=== PATIENT | male | born 1965 | race Hispanic/Latino ===

== ENCOUNTER 2019-05-04 21:06 | Emergency (ER) | payer MEDICARE ==
[2019-05-04 21:36] LABS: BASOPHILS % (AUTO) 0.4 % (0.0-5.0); EOSINOPHILS % (AUTO) 0.6 % (0.0-8.0); HEMATOCRIT 34.3 % (42-54); LYMPHOCYTES % (AUTO) 13.3 % (21.0-51.0); MEAN CORPUSCULAR HGB CONC 34.5 g/dL (32.0-36.0); MEAN CORPUSCULAR VOLUME 92.7 fL (79-99); MONOCYTES % (AUTO) 10.1 % (3.0-13.0); NEUTROPHILS % (AUTO) 75.6 % (40.0-77.0); PLATELET COUNT (AUTO) 426 K/uL (130-400); RED CELL DISTRIBUTION WIDTH 13.4 % (11.0-15.5); WHITE BLOOD COUNT (AUTO) 12.8 K/uL (4.8-10.8)
[2019-05-04] MEDS ORDERED: ONDANSETRON HCL 4 MG/2 ML VIAL ONE (21:49)
[2019-05-04] MEDS ORDERED: MORPHINE SULFATE 4 MG/1ML SYG ONE (21:49)
[2019-05-04] MEDS ORDERED: SODIUM CHLORIDE 0.9% 1000ML 1,000 ML IV ONE (21:50)
[2019-05-04 21:52] LABS: POTASSIUM 4.7 mmol/L (3.5-5.1)
[2019-05-04 21:56] LABS: ALBUMIN 3.6 g/dL (3.5-5.0); BILIRUBIN,TOTAL 0.2 mg/dL (0.2-1.0); TOTAL PROTEIN, SERUM 7.6 g/dL (6.0-8.3)
[2019-05-04 23:05] LABS: APPEARANCE,URINE Clear (CLEAR); BILIRUBIN,URINE Negative (NEGATIVE); COLOR,URINE Yellow (YELLOW); GLUCOSE, URINE (UA) Negative (NEGATIVE); KETONES,URINE Negative (NEGATIVE); LEUKOCYTE ESTERASE ,URINE Negative (NEGATIVE); NITRATE,URINE Negative (NEGATIVE); OCCULT BLOOD,URINE Negative (NEGATIVE); PH,URINE 6.5 (5.0-8.0); PROTEIN,URINE Negative (NEGATIVE); UROBILINOGEN,URINE 0.2 mg/dL (0.2-1.0)
[2019-05-04] MEDS ORDERED: LACTULOSE 20 GM/30 ML UDCUP ONE (23:48)
== END 2019-05-05 00:04 | disposition home or self-care (01) ==
LOC: EDH 21:06
DX: K59.00 Constipation, unspecified (principal); E87.1 Hypo-osmolality and hyponatremia; F32.9 Major depressive disorder, single episode, unspecified
CPT/HCPCS: 36415; 74176; 80053; 81003; 83690; 85025; 96374; 96375; 99285; J2270; J2405; J7030

== ENCOUNTER 2019-05-22 14:00 | Inpatient (IN) | payer MEDICARE ==
[~2019-05-22] VITALS: Ht 167.6 cm; Wt 60.1 kg
[2019-05-22] MEDS ORDERED: SODIUM CHLORIDE 0.9% 1000ML 1,000 ML IV ONE ×2 (14:15→22:14)
[2019-05-22] MEDS ORDERED: LORAZEPAM 2 MG/ML 1 ML VIAL ONE ×2 (14:34→20:45)
[2019-05-22 14:43] LABS: BASOPHILS % (AUTO) 0.7 % (0.0-5.0); EOSINOPHILS % (AUTO) 3.2 % (0.0-8.0); HEMATOCRIT 36.3 % (42-54); LYMPHOCYTES % (AUTO) 14.6 % (21.0-51.0); MEAN CORPUSCULAR HEMOGLOBIN 32.2 pg (27.0-33.0); MEAN CORPUSCULAR HGB CONC 34.4 g/dL (32.0-36.0); MEAN CORPUSCULAR VOLUME 93.6 fL (79-99); MONOCYTES % (AUTO) 14.2 % (3.0-13.0); NEUTROPHILS % (AUTO) 67.3 % (40.0-77.0); PLATELET COUNT (AUTO) 305 K/uL (130-400); RED BLOOD CELL COUNT(AUTO) 3.88 MIL/uL (4.50-6.20); RED CELL DISTRIBUTION WIDTH 13.5 % (11.0-15.5); WHITE BLOOD COUNT (AUTO) 7.9 K/uL (4.8-10.8)
[2019-05-22 14:45] LABS: APPEARANCE,URINE Clear (CLEAR); BILIRUBIN,URINE Negative (NEGATIVE); COLOR,URINE Yellow (YELLOW); GLUCOSE, URINE (UA) Negative (NEGATIVE); KETONES,URINE Negative (NEGATIVE); LEUKOCYTE ESTERASE ,URINE Negative (NEGATIVE); NITRATE,URINE Negative (NEGATIVE); OCCULT BLOOD,URINE Negative (NEGATIVE); PH,URINE 6.5 (5.0-8.0); PROTEIN,URINE Negative (NEGATIVE); UROBILINOGEN,URINE 0.2 mg/dL (0.2-1.0)
[2019-05-22 14:54] LABS: INR 0.95 (0.85-1.15); PARTIAL THROMBOPLASTIN TIME 27.2 SEC (26.3-35.5)
[2019-05-22 14:57] LABS: CREATININE 0.9 mg/dL (0.5-1.5); POTASSIUM 4.8 mmol/L (3.5-5.1)
[2019-05-22 15:02] LABS: ALBUMIN 3.6 g/dL (3.5-5.0); BILIRUBIN,TOTAL 0.3 mg/dL (0.2-1.0); TOTAL PROTEIN, SERUM 7.5 g/dL (6.0-8.3)
[2019-05-22] MEDS ORDERED: MORPHINE SULFATE 2 MG/ML 1ML SYG IVP ONE (17:45)
[2019-05-22] MEDS ORDERED: ONDANSETRON HCL 4 MG/2 ML VIAL IV PRN (18:00)
[2019-05-22] MEDS ORDERED: HYDRALAZINE HCL 20 MG/ML VIAL IV PRN (18:00)
[2019-05-22] MEDS ORDERED: LACTULOSE 20 GM/30 ML UDCUP PO PRN (18:00)
[2019-05-22] MEDS ORDERED: MORPHINE SULFATE 2 MG/ML 1ML SYG ONE (19:26)
[2019-05-22 22:30] VITALS: BP 134/86
--- NOTE | 2019-05-22 22:30 | NUR ---
ADMIT Admitted from ER,pt has [address] [facility].Pt has a ngt,abdomen firm,distended.Pt appears calm.Pt moved from 309 to 312 as per joss house keeper Colby Ramirez Rn.Pt has a bed alarm,yellow socks,side rails up x 2,call light in reach.
[2019-05-22] MEDS ORDERED: MAGNESIUM CITRATE 296 ML SOLUTION ONE (22:31)
[2019-05-22] MEDS ORDERED: LACTULOSE 20 GM/30 ML UDCUP PO ONE (22:45)
[2019-05-22] MEDS ORDERED: PEG 3350/NA SULF,BICARB,CL/KCL 4000 ML SOLN PO SCH (22:45)
[2019-05-22] MEDS: CEFTRIAXONE SODIUM 1 GM IV SCH (22:56)
[2019-05-22] MEDS: MAGNESIUM CITRATE 296 ML SOLUTION PO SCH (22:57)
[2019-05-22] MEDS: FAMOTIDINE/PF 20 MG/2 ML VIAL IV SCH (23:55)
[2019-05-22] MEDS: SODIUM CHLORIDE 0.9% 1000ML 1,000 ML IV SCH (23:56)
[2019-05-23] VITALS (13 sets, daily range): BP systolic 99–138; BP diastolic 73–82
--- NOTE | 2019-05-23 00:04 | NUR ---
BOWEL PREP Golytely being given via ngt,dian well.
[2019-05-23] MEDS: SODIUM CHLORIDE 0.9% 1000ML 1,000 ML IV SCH ×3 (01:46→20:01)
--- NOTE | 2019-05-23 03:44 | NUR ---
ABDOMEN Pts abdomen remains distended,hypoactive bowel sounds.No bm yet.
[2019-05-23 05:05] LABS: BASOPHILS % (AUTO) 0.9 % (0.0-5.0); EOSINOPHILS % (AUTO) 3.7 % (0.0-8.0); HEMATOCRIT 32.9 % (42-54); LYMPHOCYTES % (AUTO) 18.5 % (21.0-51.0); MEAN CORPUSCULAR HEMOGLOBIN 32.2 pg (27.0-33.0); MEAN CORPUSCULAR HGB CONC 34.7 g/dL (32.0-36.0); MEAN CORPUSCULAR VOLUME 92.9 fL (79-99); MONOCYTES % (AUTO) 12.9 % (3.0-13.0); PLATELET COUNT (AUTO) 267 K/uL (130-400); RED BLOOD CELL COUNT(AUTO) 3.55 MIL/uL (4.50-6.20); RED CELL DISTRIBUTION WIDTH 13.4 % (11.0-15.5); WHITE BLOOD COUNT (AUTO) 6.5 K/uL (4.8-10.8)
[2019-05-23 05:25] LABS: BILIRUBIN,TOTAL 0.3 mg/dL (0.2-1.0); CREATININE 0.6 mg/dL (0.5-1.5); POTASSIUM 4.3 mmol/L (3.5-5.1); TOTAL PROTEIN, SERUM 6.5 g/dL (6.0-8.3)
[2019-05-23] MEDS ORDERED: MAGN1TAB2 PO (05:44)
[2019-05-23] MEDS ORDERED: ACET325C6 PO (05:44)
[2019-05-23] MEDS ORDERED: MEGE40L PO (05:44)
[2019-05-23] MEDS ORDERED: AMIO100T4 PO (05:44)
[2019-05-23] MEDS ORDERED: ONDA4TAB4 PO (05:44)
[2019-05-23] MEDS ORDERED: DOCU100C33 PO (05:44)
[2019-05-23] MEDS ORDERED: AMLO5TAB9 PO (05:44)
[2019-05-23] MEDS ORDERED: POLY500P31 PO (05:44)
[2019-05-23] MEDS ORDERED: LORA2TAB80 PO (05:44)
[2019-05-23] MEDS ORDERED: FERS325 PO (05:44)
[2019-05-23] MEDS ORDERED: CHOL500062 PO (05:44)
[2019-05-23] MEDS ORDERED: FOLI1 PO (05:44)
[2019-05-23] MEDS ORDERED: CALC-125 PO (05:44)
[2019-05-23] MEDS ORDERED: LORA-192 PO (05:44)
[2019-05-23] MEDS ORDERED: CALC-1190 PO (05:44)
[2019-05-23] MEDS ORDERED: PROP20SO PO (05:44)
[2019-05-23] MEDS ORDERED: BISA10SU11 RC (05:44)
[2019-05-23] MEDS ORDERED: MELA10TA PO (05:44)
--- NOTE | 2019-05-23 06:56 | NUR ---
Paged Dr Leiva,pt has not had a bowel movement.
[2019-05-23] MEDS ORDERED: ERYTHROMYCIN LACTOBIONATE 250 MG in SODIUM CHLORIDE 0.9% 100 ML IV SCH (08:00)
[2019-05-23] MEDS ORDERED: ENOXAPARIN SODIUM 30 MG/0.3 ML SQ SCH (09:00)
--- NOTE | 2019-05-23 09:30 | NUR ---
INITIAL MUSTAPHA SHABAZZ CLINICAL LIASION FROM [facility] HERE. PT LIVES AT [facility] SINCE 05/2017. PT IS NON VERBAL BUT AMBULATORY AND REQUIRES SITTER. HAS TWO IN ROOM WITH HIM AT ALL TIMES, AND ALSO A BOOK RE HIS BEHAVIORS AND HANDLING SISTER IS ON FACE SHEET AND DOES NEED TO BE CONTACTED/ KEP UP TO DATE ON HIS STATUS. [facility] WILL PROVIDE TRANSPORT. CHART REVIEWED WITH MUSTAPHA- PT EXPECT TO HAVE A STAY OF +/- 3 DAYS. DCP IS BACK TO HIS [facility] . CM TO FOLLOW Addendum: 05/24/19 at 1915 by GELACIO KAMARA RN CM Amended: Links added.
[2019-05-23] MEDS: FAMOTIDINE/PF 20 MG/2 ML VIAL IV SCH ×2 (11:22→20:01)
--- NOTE | 2019-05-23 11:45 | NUR ---
Tap water enema per request of Dr. Leiva of 700 mL administered as abdomen extremely distended, tender hard to palpation. Patient to go to Endoscopy for colonoscopy and decompression with Dr. Leiva. Patient became restless post enema, attempting to stand and get out of bed. Two staff members from [facility], sister and [facility] student NIKO Quick present and assisting to stabilize patient in bed to prevent injury or fall. Called Dr. Harrison and received telephone order for ATivan 1 mg IVP once for anxiety. Called Endoscopy to notify of ATivan order to assist to transfer patient to Endoscopy. Per Anesthesiologist hold Ativan. During communication with Endoscopy, patient pulled IV out during movement, catheter intact and bleeding controlled. Consent for colonoscopy with decompression reviewed and signed by sister Kelin Castaneda, and patient escorted by hospital bed with 4 assistants.
[2019-05-23] MEDS ORDERED: MIDAZOLAM HCL 1 MG/ML 2ML VIAL ONE (12:20)
[2019-05-23] MEDS ORDERED: PROPOFOL 10 MG/ML 20ML VIAL IV ONE (12:20)
[2019-05-23] MEDS ORDERED: SUCCINYLCHOLINE 200MG/10ML SYR ONE (12:21)
[2019-05-23] MEDS ORDERED: FENTANYL CITRATE PF 50 MCG/1 ML 2ML VIAL ONE (12:22)
[2019-05-23] MEDS ORDERED: LORAZEPAM 2 MG/ML 1 ML VIAL IVP ONE (13:15)
--- NOTE | 2019-05-23 13:53 | NUR ---
RD NOTIFICATION DIET: NPO; PENDING PROCEDURE. PT WITH HX OF INTELLECTUAL DISABILITIES AND LIVES IN ASSISTED LIVING FACILITY. PT HAVING CONSTIPATION AT THIS TIME, ABDOMINAL PAIN, NAUSEA AND ABDOMINAL DISTENTION. PT STILL UNABLE TO PASS BM OF TODAY. S/P ENEMA TODAY. PENDING COLON. PROCEDURE. NO EDEMA, SKIN INTACT. BMI IS 15.8 CLASSIFIED SEVERE UNDERWEIGHT. PT WITH PHYSICAL EVIDENCE OF MUSCLE AND FAT LOSS RESULTING IN PROTEIN/ CALORIE MALNUTRITION. RECOMMENDATIONS/ INTERVENTIONS: ADVANCE DIET TOLERATED WHEN MEDICALLY FEASIBLE ASSISTED FEEDINGS WITH ALL MEALS- MONITOR PO INTAKE AND APPETITE DAILY MONITOR WEIGHT DAILY OFFER ORAL SUPPLEMENTATION WITH ALL MEALS CONSULT TELETYPE TELEGRAPHER FOR ANY SWALLOWING DIFFICULTIES RD WILL CONTINUE TO MONITOR AND FOLLOW UP NEEDED, THANK YOU Addendum: 05/23/19 at [address] Amended: Links added.
[2019-05-23] MEDS ORDERED: LORAZEPAM 2 MG/ML 1 ML VIAL ONE ×2 (15:42→23:58)
[2019-05-23] MEDS ORDERED: HALOPERIDOL DECANOATE 100 MG/ML ML IM PRN (17:00)
--- NOTE | 2019-05-23 17:00 | NUR ---
Per physician order, 4 oz. Golytely administered to rectal tube and will continue Q30 minutes until 1L complete. Patient lying in bed, making groaning noises and straining buttocks after adminstration. Pulled IV to LW out that was placed in Endoscopy. Bleeding controlled, site cleansed with alcohol. Received verbal order from Dr. Dez Harrison for Haldol 5 mg IM Q6h PRN for anxiety. Patient tolerated administration of Golytely rectally, [facility] staff x 2 at bedside. Rectal tube hanging above floor, draining dark greenish brown. Bed low, locked. Call cantor within reach.
[2019-05-23] MEDS ORDERED: LORAZEPAM 2 MG/ML 1 ML VIAL IM SCH (17:15)
[2019-05-23] MEDS ORDERED: LORAZEPAM 2 MG/ML 1 ML VIAL IM ONE (17:15)
[2019-05-23] MEDS ORDERED: PEG 3350/NA SULF,BICARB,CL/KCL 4000 ML SOLN PO ONE (17:15)
--- NOTE | 2019-05-23 17:21 | NUR ---
Patient's NG tube tape came loose. XR Abdomen taken, pending results. HOlding Miralax administration until results verify NG tube in place.
[2019-05-23] MEDS ORDERED: POTASSIUM CHLORIDE 10MEQ/100ML 100 ML IV PRN (19:00)
[2019-05-23] MEDS ORDERED: LIDOCAINE HCL-MPF 1% 2ML VIAL IV PRN (19:00)
[2019-05-23] MEDS: MORPHINE SULFATE 2 MG/ML 1ML SYG IVP PRN (20:02)
[2019-05-23] MEDS: POLYETHYLENE GLYCOL 3350 17 GM POWD.PACK PO SCH (20:16)
--- NOTE | 2019-05-23 20:37 | NUR ---
RESTLESS Pt became very restless and agitated,trying to get out of bed,2 staff from [facility] in the room.Abdomen softer,rectal tube patent,draining brown liquid stool.Pt was medicated with morphine and zofran earlier.Notified Yony alvarado cooler supervisor re pt.s status.
[2019-05-23] MEDS: MAGNESIUM CITRATE 296 ML SOLUTION PO SCH (22:45)
[2019-05-23] MEDS: HALOPERIDOL LACTATE 5 MG/ML VIAL IM PRN (23:12)
[2019-05-23] MEDS: CEFTRIAXONE SODIUM 1 GM IV SCH (23:12)
--- NOTE | 2019-05-23 23:21 | NUR ---
HALDOL Pt was soiled,became restless again when staff changed his bed.Haldol given.
[2019-05-24] VITALS: BP 134/84
[2019-05-24] MEDS ORDERED: LORAZEPAM 2 MG/ML 1 ML VIAL IVP ONE
--- NOTE | 2019-05-24 00:08 | NUR ---
ATIVAN Pt still restless and agitated,ativan given iv.
--- NOTE | 2019-05-24 00:19 | NUR ---
CALM Pt appears more calm,respirations even and unlabored.2 staff from [place] at bedside.
[2019-05-24] MEDS: SODIUM CHLORIDE 0.9% 1000ML 1,000 ML IV SCH ×3 (01:46→22:30)
[2019-05-24] MEDS: HALOPERIDOL LACTATE 5 MG/ML VIAL IM SCH ×2 (02:03→17:16)
--- NOTE | 2019-05-24 04:40 | NUR ---
ASLEEP Pt cont to sleep,respirations even and unlabored.Arousable.Rectal tube draining light brown liquid,cont to flush with 6 oz golytely q 30 min.
[2019-05-24 05:19] LABS: BASOPHILS % (AUTO) 0.6 % (0.0-5.0); EOSINOPHILS % (AUTO) 2.9 % (0.0-8.0); HEMATOCRIT 36.5 % (42-54); LYMPHOCYTES % (AUTO) 13.1 % (21.0-51.0); MEAN CORPUSCULAR HEMOGLOBIN 31.8 pg (27.0-33.0); MEAN CORPUSCULAR HGB CONC 33.8 g/dL (32.0-36.0); MEAN CORPUSCULAR VOLUME 93.9 fL (79-99); MONOCYTES % (AUTO) 10.2 % (3.0-13.0); NEUTROPHILS % (AUTO) 73.2 % (40.0-77.0); PLATELET COUNT (AUTO) 269 K/uL (130-400); RED BLOOD CELL COUNT(AUTO) 3.89 MIL/uL (4.50-6.20); RED CELL DISTRIBUTION WIDTH 13.5 % (11.0-15.5); WHITE BLOOD COUNT (AUTO) 7.4 K/uL (4.8-10.8)
[2019-05-24 05:34] LABS: ALBUMIN 3.2 g/dL (3.5-5.0); BILIRUBIN,TOTAL 0.4 mg/dL (0.2-1.0); CREATININE 0.6 mg/dL (0.5-1.5); POTASSIUM 4.6 mmol/L (3.5-5.1)
[2019-05-24 08:00] VITALS: BP 142/84
[2019-05-24] MEDS: POLYETHYLENE GLYCOL 3350 17 GM POWD.PACK PO SCH ×4 (09:43→20:35)
[2019-05-24] MEDS: FAMOTIDINE/PF 20 MG/2 ML VIAL IV SCH ×2 (09:43→20:35)
[2019-05-24] MEDS: HALOPERIDOL LACTATE 5 MG/ML VIAL IM PRN (11:27)
[2019-05-24 12:00] VITALS: BP 149/99
--- NOTE | 2019-05-24 13:38 | NUR ---
RD Follow up Diet: Clear liquids. PO intake 100% and has good appetite as per family. Pt is tolerating meals well. LBM: 05/23, noted. Recommendations/ Interventions: Continue current diet, advance diet as tolerated when medically feasible Offer salt packet with meals RD will continue to follow up Addendum: 05/24/19 at [address] Amended: Links added.
[2019-05-24 16:00] VITALS: BP 147/96
[2019-05-24 20:00] VITALS: BP 149/94
[2019-05-24] MEDS: MORPHINE SULFATE 2 MG/ML 1ML SYG IVP PRN (21:36)
[2019-05-24] MEDS: CEFTRIAXONE SODIUM 1 GM IV SCH (22:22)
[2019-05-24] MEDS ORDERED: LORAZEPAM 2 MG/ML 1 ML VIAL ONE (23:36)
[2019-05-25] VITALS: BP 132/85
[2019-05-25 04:00] VITALS: BP 118/74
[2019-05-25 05:55] LABS: BASOPHILS % (AUTO) 0.5 % (0.0-5.0); EOSINOPHILS % (AUTO) 5.2 % (0.0-8.0); HEMATOCRIT 33.8 % (42-54); LYMPHOCYTES % (AUTO) 14.7 % (21.0-51.0); MEAN CORPUSCULAR HEMOGLOBIN 31.7 pg (27.0-33.0); MEAN CORPUSCULAR VOLUME 93.2 fL (79-99); MONOCYTES % (AUTO) 12.2 % (3.0-13.0); NEUTROPHILS % (AUTO) 67.4 % (40.0-77.0); PLATELET COUNT (AUTO) 279 K/uL (130-400); RED BLOOD CELL COUNT(AUTO) 3.62 MIL/uL (4.50-6.20); RED CELL DISTRIBUTION WIDTH 13.5 % (11.0-15.5); WHITE BLOOD COUNT (AUTO) 5.5 K/uL (4.8-10.8)
[2019-05-25 06:02] LABS: CREATININE 0.5 mg/dL (0.5-1.5); POTASSIUM 4.3 mmol/L (3.5-5.1)
[2019-05-25 06:07] LABS: ALBUMIN 3.1 g/dL (3.5-5.0); BILIRUBIN,TOTAL 0.4 mg/dL (0.2-1.0); MAGNESIUM 2.6 mg/dL (1.80-2.40); TOTAL PROTEIN, SERUM 6.9 g/dL (6.0-8.3)
[2019-05-25] MEDS: SODIUM CHLORIDE 0.9% 1000ML 1,000 ML IV SCH ×2 (06:46→23:42)
[2019-05-25 08:00] VITALS: BP 115/71
[2019-05-25] MEDS: FAMOTIDINE/PF 20 MG/2 ML VIAL IV SCH ×2 (09:28→21:31)
[2019-05-25] MEDS: POLYETHYLENE GLYCOL 3350 17 GM POWD.PACK PO SCH ×4 (09:28→21:30)
[2019-05-25 12:00] VITALS: BP 106/75
[2019-05-25] MEDS ORDERED: SODIUM CHLORIDE 45 ML SPRY NS PRN (15:30)
[2019-05-25 16:00] VITALS: BP 135/70
[2019-05-25 20:00] VITALS: BP 136/84
[2019-05-25] MEDS: ***HM*** (Melatonin 10 MG) PO SCH (21:00)
[2019-05-25] MEDS: DOCUSATE SODIUM 100 MG CAP PO SCH (21:31)
[2019-05-25] MEDS: CEFTRIAXONE SODIUM 1 GM IV SCH (23:35)
[2019-05-26] VITALS: BP 138/85
[2019-05-26 04:00] VITALS: BP 139/85
[2019-05-26] MEDS ORDERED: ACETAMINOPHEN 325 MG TAB ONE (04:28)
[2019-05-26] MEDS ORDERED: ACETAMINOPHEN 325 MG TAB PO PRN (04:30)
[2019-05-26] MEDS: SODIUM CHLORIDE 0.9% 1000ML 1,000 ML IV SCH ×2 (04:56→14:56)
[2019-05-26] MEDS: LORAZEPAM 2 MG/ML 1 ML VIAL IVP PRN (06:55)
[2019-05-26 08:00] VITALS: BP 128/84
[2019-05-26] MEDS ORDERED: PROPRANOLOL HCL 20 MG/5 ML PO SCH (09:00)
[2019-05-26] MEDS: DOCUSATE SODIUM 100 MG CAP PO SCH ×2 (09:02→21:38)
[2019-05-26] MEDS: FERROUS SULFATE 325 MG TABLET.DR PO SCH (09:02)
[2019-05-26] MEDS: AMLODIPINE BESYLATE 5 MG TAB PO SCH (09:02)
[2019-05-26] MEDS: PROPRANOLOL HCL 20 MG TAB PO SCH (09:02)
[2019-05-26] MEDS: FAMOTIDINE/PF 20 MG/2 ML VIAL IV SCH ×2 (09:03→21:38)
[2019-05-26] MEDS: POLYETHYLENE GLYCOL 3350 17 GM POWD.PACK PO SCH ×4 (09:03→21:37)
[2019-05-26] MEDS: MEGESTROL 400 MG/10 ML UDCUP PO SCH (09:03)
[2019-05-26] MEDS: FOLIC ACID 1 MG TABLET PO SCH (09:03)
[2019-05-26 12:00] VITALS: BP 120/80
--- NOTE | 2019-05-26 12:10 | NUR ---
QUE PURVIS ,DR JOSE HERNANDEZ LAP RUNNER TODAY FOR CLEARANCE FOR DC AND DIET ADVANCEMENT . PENDING CALL BACK
[2019-05-26 16:00] VITALS: BP 132/82
[2019-05-26 19:10] VITALS: BP 127/92
[2019-05-26] MEDS: ***HM*** (Melatonin 10 MG) PO SCH (20:12)
[2019-05-26] MEDS: MUPIROCIN OINTMENT 22 GM TUBE TP SCH (21:00)
[2019-05-26] MEDS: CEFTRIAXONE SODIUM 1 GM IV SCH (22:58)
[2019-05-27] VITALS (7 sets, daily range): BP systolic 112–144; BP diastolic 69–96
[2019-05-27] MEDS: MUPIROCIN OINTMENT 22 GM TUBE TP SCH (09:00)
[2019-05-27] MEDS ORDERED: AMIODARONE HCL 200 MG TABLET PO SCH (09:00)
[2019-05-27] MEDS: FAMOTIDINE/PF 20 MG/2 ML VIAL IV SCH ×2 (10:28→20:54)
[2019-05-27] MEDS: DOCUSATE SODIUM 100 MG CAP PO SCH ×2 (10:28→20:54)
[2019-05-27] MEDS: FOLIC ACID 1 MG TABLET PO SCH (10:28)
[2019-05-27] MEDS: MEGESTROL 400 MG/10 ML UDCUP PO SCH (10:28)
[2019-05-27] MEDS: FERROUS SULFATE 325 MG TABLET.DR PO SCH (10:28)
[2019-05-27] MEDS: AMLODIPINE BESYLATE 5 MG TAB PO SCH (10:28)
[2019-05-27] MEDS: LORAZEPAM 2 MG/ML 1 ML VIAL IVP PRN (10:32)
[2019-05-27] MEDS: PROPRANOLOL HCL 20 MG TAB PO SCH (11:13)
[2019-05-27] MEDS: POLYETHYLENE GLYCOL 3350 17 GM POWD.PACK PO SCH ×4 (11:15→20:54)
[2019-05-27] MEDS ORDERED: HONEY 1 APPL/ML TUBE TP SCH (19:30)
[2019-05-27] MEDS ORDERED: PEG 3350/NA SULF,BICARB,CL/KCL 4000 ML SOLN PO ONE (20:15)
[2019-05-27] MEDS: ***HM*** (Melatonin 10 MG) PO SCH (20:58)
[2019-05-27] MEDS: CEFTRIAXONE SODIUM 1 GM IV SCH (22:55)
[2019-05-28] MEDS: HALOPERIDOL LACTATE 5 MG/ML VIAL IM PRN (01:01)
[2019-05-28] MEDS: LORAZEPAM 2 MG/ML 1 ML VIAL IVP PRN (01:56)
--- NOTE | 2019-05-28 02:46 | NUR ---
golytely encourage patient to drink golytely every 2 hours and patient refuses. will continue to encourage.
[2019-05-28 03:19] VITALS: BP 124/72
[2019-05-28 07:30] VITALS: BP 118/76
[2019-05-28] MEDS: MUPIROCIN OINTMENT 22 GM TUBE TP SCH (09:00)
[2019-05-28] MEDS: MEGESTROL 400 MG/10 ML UDCUP PO SCH (10:27)
[2019-05-28] MEDS: DOCUSATE SODIUM 100 MG CAP PO SCH (10:27)
[2019-05-28] MEDS: PROPRANOLOL HCL 20 MG TAB PO SCH (10:27)
[2019-05-28] MEDS: FOLIC ACID 1 MG TABLET PO SCH (10:27)
[2019-05-28] MEDS: POLYETHYLENE GLYCOL 3350 17 GM POWD.PACK PO SCH ×2 (10:28→13:16)
[2019-05-28] MEDS: FERROUS SULFATE 325 MG TABLET.DR PO SCH (10:28)
[2019-05-28] MEDS: FAMOTIDINE/PF 20 MG/2 ML VIAL IV SCH (10:28)
[2019-05-28] MEDS: AMLODIPINE BESYLATE 5 MG TAB PO SCH (10:28)
[2019-05-28] MEDS ORDERED: POLY17PO4 PO (11:35)
--- NOTE | 2019-05-28 15:56 | NUR ---
Pt d/c update Pt d/c safely accompanied with 2 staff members from [facility], d/c instructions given to staff members, staff members verbalized understanding of d/c instruction with primary nurse, pt to follow up with primary care provider and as well as GI, appointment made for pt, report given to Reta Winston NP, Pt prescription meds sent electronically to pharmacy on file, all questions and concerns addressed.
== END 2019-05-28 14:40 | disposition home or self-care (01) | DRG 389 ==
LOC: EDH 14:00 → EDHIP 17:46 → 3BH 22:20
PROVIDERS: ADMIT Internal Medicine; ATTEND Internal Medicine
PROC: 0D9E80Z Drainage of Large Intestine with Drainage Device, Via Natural or Artificial Opening Endoscopic (ICD-10-PCS; principal; 2019-05-23)
DX: K56.7 Ileus, unspecified (principal); J98.11 Atelectasis; K59.39 Other megacolon; K29.80 Duodenitis without bleeding; K29.70 Gastritis, unspecified, without bleeding; K27.9 Peptic ulcer, site unspecified, unspecified as acute or chronic, without hemorrhage or perforation; D64.9 Anemia, unspecified; F41.9 Anxiety disorder, unspecified; F63.81 Intermittent explosive disorder; K21.9 Gastro-esophageal reflux disease without esophagitis; F71 Moderate intellectual disabilities; I10 Essential (primary) hypertension; K64.1 Second degree hemorrhoids; D50.9 Iron deficiency anemia, unspecified; K59.00 Constipation, unspecified
CPT/HCPCS: 36415; 71045; 74018; 74176; 76872; 80053; 81003; 83690; 83735; 84132; 85025; 85610; 85730; A4606; G0378; J0330; J0696; J1364; J1630; J2060; J2250; J2405; J2704; J3010; J3490; J7030

== ENCOUNTER 2020-05-10 05:14 | Inpatient (IN) | payer MEDICARE ==
[~2020-05-10] VITALS: Ht 165.1 cm; Wt 56.7 kg
[~2020-05-10 05:14] MED LIST: ACET325C6 PO; AMIO100T4 PO; AMLO-257 PO; BISA10SU11 RC; CALC-1190 PO; CALC-125 PO; CHOL500062 PO; DOCU100C33 PO; FERS325 PO; FOLI1 PO; LORA-192 PO; LORA2TAB80 PO; MAGN1TAB2 PO; MEGE40L PO; MELA10TA PO; ONDA4TAB4 PO; POLY17PO4 PO; POLY500P31 PO; PROP20SO PO
[2020-05-10] MEDS ORDERED: LORAZEPAM 2 MG/ML 1 ML VIAL ONE (05:20)
[2020-05-10] MEDS ORDERED: PROPOFOL 1000 MG/100 ML 100 ML IV ONE ×4 (05:35→21:27)
[2020-05-10] MEDS ORDERED: SODIUM CHLORIDE 0.9% 100 ML IV ONE (05:38)
[2020-05-10] MEDS ORDERED: PANTOPRAZOLE 40 MG/VIAL ONE ×2 (05:38→14:45)
[2020-05-10] MEDS ORDERED: MIDAZOLAM HCL 5 MG/ML 2ML VIAL IV ONE (05:43)
[2020-05-10 05:47] LABS: BASOPHILS % (AUTO) 0.4 % (0.0-5.0); HEMATOCRIT 41.2 % (42-54); LYMPHOCYTES % (AUTO) 22.9 % (21.0-51.0); MEAN CORPUSCULAR HEMOGLOBIN 30.9 pg (27.0-33.0); MEAN CORPUSCULAR HGB CONC 34.2 g/dL (32.0-36.0); MEAN CORPUSCULAR VOLUME 90.2 fL (79-99); MONOCYTES % (AUTO) 9.7 % (3.0-13.0); NEUTROPHILS % (AUTO) 65.7 % (40.0-77.0); PLATELET COUNT (AUTO) 313 K/uL (130-400); RED BLOOD CELL COUNT(AUTO) 4.57 MIL/uL (4.50-6.20); RED CELL DISTRIBUTION WIDTH 12.3 % (11.0-15.5)
[2020-05-10 05:55] LABS: CREATININE 1.1 mg/dL (0.5-1.5); POTASSIUM 3.9 mmol/L (3.5-5.1)
[2020-05-10 05:55] LABS: APPEARANCE,URINE Cloudy (CLEAR); BILIRUBIN,URINE Negative (NEGATIVE); COLOR,URINE Yellow (YELLOW); GLUCOSE, URINE (UA) Negative (NEGATIVE); KETONES,URINE Negative (NEGATIVE); LEUKOCYTE ESTERASE ,URINE Negative (NEGATIVE); NITRATE,URINE Negative (NEGATIVE); OCCULT BLOOD,URINE Negative (NEGATIVE); PH,URINE 7.5 (5.0-8.0); PROTEIN,URINE Negative (NEGATIVE); UROBILINOGEN,URINE 0.2 mg/dL (0.2-1.0)
[2020-05-10 05:59] LABS: ALBUMIN 4.1 g/dL (3.5-5.0); BILIRUBIN,TOTAL 0.4 mg/dL (0.2-1.0); TOTAL PROTEIN, SERUM 8.7 g/dL (6.0-8.3)
[2020-05-10 06:15] LABS: INR 0.93 (0.85-1.15); PARTIAL THROMBOPLASTIN TIME 23.9 SEC (26.3-35.5); PROTHROMBIN TIME 10.1 SEC (9.6-11.6)
[2020-05-10 06:26] LABS: AMORPHOUS SEDIMENT,UR Moderate /LPF (None Seen); BACTERIA,URINE Few /HPF (None Seen); RBC,URINE 0-1 /HPF (0-1); WBC,URINE 0-1 /HPF (0-1)
[2020-05-10] MEDS ORDERED: IOHEXOL 350 MG/ML 100ML INFUS..BTL IV ONE (06:48)
[2020-05-10] MEDS ORDERED: SODIUM CHLORIDE 0.9% 1000ML 1,000 ML IV SCH (07:15)
[2020-05-10] MEDS ORDERED: PANTOPRAZOLE SODIUM 80 MG in SODIUM CHLORIDE 0.9% 100 ML IVP SCH (07:15)
[2020-05-10] MEDS ORDERED: ONDANSETRON HCL 4 MG/2 ML VIAL IVP PRN ×2 (07:15)
[2020-05-10 09:04] LABS: OCCULT BLOOD,GASTRIC FLUID POSITIVE (NEGATIVE)
[2020-05-10 12:34] LABS: HEMATOCRIT 35.9 % (42-54)
[2020-05-10 14:42] LABS: ABG BASE EXCESS 0.8 mmol/L (-2.0-3.0); ABG HCO3 23.5 mmol/L (21.0-28.0); ABG OXYGEN SATURATION 99.5 % (95.0-99.0); ABG PCO2 32 mmHg (35-48)
--- NOTE | 2020-05-10 14:48 | NUR ---
INITIAL SW spoke to nurse, Raj Paniagua at [facility]. Patient is a resident at [facility]. He has diagnosis of Intellectual Developmental Disability (IDD). Patient's sister, Danni Sims, , is legal guardian and makes all decisions for patient. Patient requires assistance with ADL's and is assisted daily by staff at [facility]. He is able to ambulate with assistance from staff with a gait belt. As per sister, patient will return to [facility] upon discharge. Staff at [facility] will be available to pear picker patient once he is discharged as per nurses at facility. Addendum: 05/10/20 at 1452 by KITA AVALOS SS Amended: Links added.
[2020-05-10] MEDS ORDERED: FENTANYL 2500MCG+NS 250ML 250 ML IV SCH (15:45)
[2020-05-10] MEDS ORDERED: FENTANYL 2500MCG+NS 250ML 250 ML IV ONE (18:35)
[2020-05-10 18:38] LABS: HEMATOCRIT 38.3 % (42-54)
[2020-05-11] MEDS ORDERED: PROPOFOL 1000 MG/100 ML 100 ML IV ONE ×3 (04:13→18:34)
[2020-05-11 06:51] LABS: HEMATOCRIT 36.3 % (42-54)
[2020-05-11 09:04] LABS: CREATININE 0.9 mg/dL (0.5-1.5); POTASSIUM 3.7 mmol/L (3.5-5.1)
[2020-05-11] MEDS ORDERED: OMEP-420 PO (09:15)
[2020-05-11] MEDS ORDERED: METO5TAB2 PO (09:36)
[2020-05-11] MEDS ORDERED: DENO60DI SQ (09:36)
[2020-05-11] MEDS ORDERED: METO50TA18 PO (09:36)
[2020-05-11] MEDS ORDERED: QUET100T33 PO (09:36)
[2020-05-11] MEDS ORDERED: GUAN1TAB22 PO (09:36)
--- NOTE | 2020-05-11 10:36 | NUR ---
RECD CALL FROM FAMILY Brother, alina, called this Cm on the phone and wanted to talk about patient. States his brother is dying, bleeding to , and 'no one doing anything for him, and we want him moved." CM reviewing chart at time of call, Ash Sims, identified at sister and POA also on the call States she wants her brother moved to another hospital. Reviewed item in the chart with the family - hgb 12, not needing blood at this time, on protonix drip. Family states an ER nurse told them they 'we are not doing anything for him and because he is not dying, we will get to him when we get to him' Family very upset, no treatment for his gi bleeding has been done, states intubation was a result of medication given to hiim, not a planned therapy. Advised i would call the md looking after the patient and call the boiler house supervisor- that i do not handle transfers. call to dr. stubbs and to the boiler house supervisor Dr Stubbs states would go look at patient called back, given ash number [phone] states he will call family call to bahman LAGUNAS to advised of family wishes
--- NOTE | 2020-05-11 10:37 | NUR ---
Brother, unidentified, called this Cm on the phone and wanted to talk about patient. States his brother is dying, bleeding to , and 'no one doing anything for him, and we want him moved." CM reviewing chart at time of call. Danni Sims, identified at [facility] and POA, was also on phone call States she wants her brother moved to another hospital. Reviewed items/info in the chart with the family - hgb 12, not needing blood at this time, on protonix drip.Family states an ER nurse told them 'we are not doing anything for him, and because he is not dying, we will get to him when we get to him' Family very upset: states no treatment for his gi bleeding has been done, states intubation was a result of medication given to patient, states not a planned therapy. Advised family that this CM would call the MD looking after the patient and call the warehouse stocker- that I do not handle transfers. Made call to Dr. Stubbs and to the warehouse stocker Dr Stubbs states would go look at patient called back, was given Danni number [phone] and states he will call family after seeing patient call to Terrie LAGUNAS to advised of family wishes.
[2020-05-11 12:21] LABS: HEMATOCRIT 38.3 % (42-54)
--- NOTE | 2020-05-11 12:41 | NUR ---
Patient's family requesting to transfer patient to [facility] for personal reasons. Patient is currently in ER holding and intubated. Patient has an admitting physician and specialist on the case here at [facility]. Contacted Meño from transfer center and states [facility] is at capacity and will have to decline patient's lateral transfer. ER director to notify family.
--- NOTE | 2020-05-11 13:15 | NUR ---
TRANSFER RECEIVED A CALL FROM PATIENT'S SISTER MICHAEL REQUESTING TRANSFER TO [facility], FAMILY UPSET THAT PT IS NOT GETTING GOOD CARE HERE. PLACED A CALL TO [facility] TRANSFER [facility]ENTER SPOKE WITH CLARY, GAVE PERTINENT INFO, FAXED INFO REQUESTED. AWAITING CALL BACK.
--- NOTE | 2020-05-11 15:45 | NUR ---
FAMILY UPDATE SPOKE WITH PATIENT'S SISTER, MICHAEL. MADE AWARE OF PENDING BED PLACEMENT WITH DHR. SISTER SIGNED RELEASE OF MEDICAL RECORDS AND CONSENT FOR TRANSFER. WILL FOLLOW UP WITH UPDATE ONCE DHR CALLS BACK WITH BED STATUS.
--- NOTE | 2020-05-11 16:18 | NUR ---
FOLLOW UP FOR TRANSFER RECEIVED CALL FROM [facility]. STATES CURRENTLY NO ICU BEDS AVAILABLE. WILL NOTIFY PATIENT'S SISTER, MICHAEL. PATIENT CURRENTLY INTUBATED. DR. DEWAYNE KELLER.
--- NOTE | 2020-05-11 16:49 | NUR ---
FAMILY UPDATE DHR TRANFER COORDINATOR, CLARY, RETURNED CALL. NO ICU BEDS AVAILABLE. SPOKE WITH PATIENT'S SISTER, MICHAEL, AND LET HER KNOW THAT THERE ARE NO AVAILABLE ICU BEDS FOR PATIENT AT THIS TIME. INFORMED THAT IT IS DR BUCHANAN'S PLAN TO EXTUBATE PATIENT TOMORROW DUE TO PATIENT'S CONDITION IMPROVING AND STABLE VITALS. MICHAEL AGREED TO LET PATIENT STAY AT [facility] AND CONTINUE CURRENT TREATMENT.
[2020-05-11] MEDS: DEXTROSE 5 %-0.45 % NACL 1,000 ML IV SCH (17:15)
[2020-05-11] MEDS ORDERED: DEXTROSE 5 %-0.45 % NACL 1,000 ML IV ONE (17:25)
[2020-05-11 18:50] LABS: HEMATOCRIT 49.9 % (42-54)
--- NOTE | 2020-05-11 19:24 | NUR ---
TRANSFER RECEIVED A CALL FROM PRECISION ASSEMBLER CLARY FROM [facility], PT HAS BEEN ACCEPTED BUT WAITING FOR A BED FOR TONIGHT. MICHAEL THE SISTER INFORMED AND HS GIVEN REPORT.
[2020-05-11] MEDS ORDERED: ACETAMINOPHEN 650 MG SUPPOSITORY RC ONE (21:16)
[2020-05-11] MEDS ORDERED: MEROPENEM 1 GM VIAL ONE (22:17)
[2020-05-12] VITALS (10 sets, daily range): BP systolic 136–167; BP diastolic 91–110
[2020-05-12 00:44] LABS: HEMATOCRIT 35.6 % (42-54)
[2020-05-12] MEDS ORDERED: PROPOFOL 1000 MG/100 ML 100 ML IV ONE (02:26)
[2020-05-12] MEDS ORDERED: MIDAZOLAM 100MG-0.9% NS 100ML 100 ML IV ONE (02:29)
[2020-05-12] MEDS ORDERED: MEROPENEM 1 GM VIAL ONE (05:50)
[2020-05-12 06:08] LABS: BASOPHILS % (AUTO) 0.4 % (0.0-5.0); EOSINOPHILS % (AUTO) 3.7 % (0.0-8.0); HEMATOCRIT 32.6 % (42-54); LYMPHOCYTES % (AUTO) 15.4 % (21.0-51.0); MEAN CORPUSCULAR HEMOGLOBIN 31.9 pg (27.0-33.0); MEAN CORPUSCULAR HGB CONC 34.4 g/dL (32.0-36.0); MEAN CORPUSCULAR VOLUME 92.9 fL (79-99); NEUTROPHILS % (AUTO) 67.9 % (40.0-77.0); PLATELET COUNT (AUTO) 241 K/uL (130-400); RED BLOOD CELL COUNT(AUTO) 3.51 MIL/uL (4.50-6.20); RED CELL DISTRIBUTION WIDTH 12.6 % (11.0-15.5); WHITE BLOOD COUNT (AUTO) 8.4 K/uL (4.8-10.8)
[2020-05-12 06:24] LABS: CREATININE 0.7 mg/dL (0.5-1.5); POTASSIUM 4.2 mmol/L (3.5-5.1)
--- NOTE | 2020-05-12 07:16 | NUR ---
TRANSFER CONTACTED [facility] WHO STATES THAT THERE ARE NO ICU BEDS AVAILABLE. THIS INFORMATION HAS BEEN SHARED WITH THE SISTER WHO INSISTS THAT SHE WAS TOLD HE WOULD BE TRANSFERRED LAST NIGHT. REITERATED THAT NO ONE TOLD HER HE WOULD BE TRANSFERRED LAST NIGHT--THERE WERE NO ICU BEDS AVAILABLE.
--- NOTE | 2020-05-12 09:16 | NUR ---
CALL RECEIVED FROM BRIGETTE PAGE NURSE MEDICAL VAN DRIVER AT [facility] INQUIRING RE STATUS, DISCUSSED TRANSFER, STATED SHE HAD SPOKEN TO FAMILY JENNA RAMIREZ RE: THE TRANSFER AND STATUS HGB AND VS DISCUSSED, ADVISED MS. PAGE THAT PATIENT WAS DEEMED STABLE FOR TRANSFER BY THE PMD, AND THAT THEY WERE PENIDNG A BED AT [facility]. REVIEWED TRANSFER DOCUMENTATION IN THE CHART. MS. KAYLEE LIN PATIENT HAS BEEN A RESIDENT FOR >2 YEARS, AND PRIOR TO THAT WAS CARED FOR BY THE FAMILY WHO ARE STRONG ADVOCATES MS PAGE STATES PATIENT HAS AEROPHAGIA WHICH CONTRIBUTES TO HIS GI PROBLEMS CM TO FOLLOW NEEDED/REQUESTED. HS TO HANDLE TRANSFER AND EMS TRANSPORT. Addendum: 05/12/20 at 0920 by GELACIO KAMARA RN Amended: Links added.
[2020-05-12] MEDS: DEXTROSE 5 %-0.45 % NACL 1,000 ML IV SCH (13:15)
[2020-05-12] MEDS ORDERED: ACETAMINOPHEN 650 MG SUPPOSITORY RC ONE (13:22)
--- NOTE | 2020-05-12 14:20 | NUR ---
CALL [facility] NURSE BODY ROLLING MACHINE TENDER ASKING FOR VERIFICATION THAT PATIENT TESTED POSITIVE FOR COVID. PATIENTS RESULT SENT TO [phone] Addendum: 05/12/20 at 1423 by GELACIO KAMARA RN CM Amended: Links added.
[2020-05-12] MEDS: CEFTRIAXONE SODIUM 1 GM IVP SCH (14:45)
[2020-05-12] MEDS ORDERED: CEFTRIAXONE SODIUM 1 GM ONE (14:47)
[2020-05-12] MEDS ORDERED: ONDANSETRON HCL 4 MG/2 ML VIAL ONE (15:40)
[2020-05-12] MEDS ORDERED: OLANZAPINE 10MG/ML 1ML VIAL IM SCH (17:45)
--- NOTE | 2020-05-12 19:00 | NUR ---
ADMIT PT ADMIT RM 206 ARRIVED FROM ED AT THIS TIME PT CONNECTED TO BEDSIDE MONITOR. PT ARRIVED AGITATED FUSSY AND AGGRESSIVE ATTEMPTING TO GET OUT OF BED, SITTER DENZEL AT BEDSIDE. REPORT RECEIVED FROM ELOISA Caldwell RN PT UNABLE TO COMMUNICATE D/T DEVELOPMENT DELAY. PT ABLE TO COMMUNICATE BY HEAD NODDING AND HEAD SHAKING. DAVID Post NOTIFIED AND MADE AWARE PT IN UNIT AND UPDATED ON PT CONDITION. NEW ORDERS RECEIVED AND IMPLEMENTED. DISCOVERED PT IS HUNGRY WHEN STATED NPO PT BECAME MORE FUSSY AND AGGRESSIVE. AT THIS TIME SIBLING MICHAEL NOTIFIED TO FIND OUT PT BASELINE BEHAVIOR SHE STATES PT WILL MISBEHAVE AND FIGHT. AT THIS TIME UPDATED FAMILY ON PT CONDITION & ALLOWED FOR FAMILY TO ASK QUESTION AND CONCERNS. PT WILL CONTINUE TO BE MONITORED.
[2020-05-12] MEDS: PANTOPRAZOLE 40 MG/VIAL IVP SCH (20:36)
[2020-05-12] MEDS ORDERED: LORAZEPAM 2 MG/ML 1 ML VIAL IVP ONE (21:15)
[2020-05-12] MEDS: HALOPERIDOL LACTATE 5 MG/ML VIAL IM PRN (21:56)
[2020-05-13] VITALS (24 sets, daily range): BP systolic 88–173; BP diastolic 34–112
[2020-05-13] MEDS: DEXTROSE 5 %-0.45 % NACL 1,000 ML IV SCH (00:58)
[2020-05-13] MEDS: CEFTRIAXONE SODIUM 1 GM IVP SCH ×2 (03:25→17:25)
[2020-05-13] MEDS ORDERED: DiphenhydrAMINE HCL 50 MG/ML VIAL ONE (03:47)
[2020-05-13] MEDS: DiphenhydrAMINE HCL 50 MG/ML VIAL IV SCH ×2 (03:54→11:28)
[2020-05-13 04:30] LABS: BASOPHILS % (AUTO) 0.3 % (0.0-5.0); HEMATOCRIT 35.8 % (42-54); MEAN CORPUSCULAR HEMOGLOBIN 30.6 pg (27.0-33.0); MEAN CORPUSCULAR HGB CONC 33.8 g/dL (32.0-36.0); MEAN CORPUSCULAR VOLUME 90.6 fL (79-99); NEUTROPHILS % (AUTO) 79.4 % (40.0-77.0); PLATELET COUNT (AUTO) 270 K/uL (130-400); RED BLOOD CELL COUNT(AUTO) 3.95 MIL/uL (4.50-6.20); WHITE BLOOD COUNT (AUTO) 11.5 K/uL (4.8-10.8)
[2020-05-13 04:51] LABS: ALANINE AMINOTRANSFERASE 27 U/L (12-78); ALBUMIN 3.3 g/dL (3.5-5.0); ASPARTATE AMINOTRANSFERASE 68 U/L (10-37); BILIRUBIN,TOTAL 0.4 mg/dL (0.2-1.0); CARBON DIOXIDE 26 mmol/L (21-32); CHLORIDE 102 mmol/L (101-111); CREATININE 0.9 mg/dL (0.5-1.5); GLOMERULAR FILTR. RATE CALC 93 mL/min (>60); GLUCOSE,RANDOM 118 mg/dL (70-105); LACTATE DEHYDROGENASE 217 U/L (81-234); POTASSIUM 3.8 mmol/L (3.5-5.1); SODIUM SERUM 139 mmol/L (136-145); TOTAL PROTEIN, SERUM 7.8 g/dL (6.0-8.3); UREA NITROGEN, BLOOD 6 mg/dL (7-18)
[2020-05-13] MEDS: DEXTROSE 5 % AND 0.9 % NACL 1,000 ML IV SCH ×2 (06:14→18:39)
[2020-05-13] MEDS ORDERED: DOXYCYCLINE 100MG+NS 250ML 250 ML IV SCH (08:00)
[2020-05-13] MEDS: HALOPERIDOL LACTATE 5 MG/ML VIAL IM PRN (09:03)
[2020-05-13] MEDS: PANTOPRAZOLE 40 MG/VIAL IVP SCH (09:03)
[2020-05-13] MEDS ORDERED: BUSPIRONE HCL 5 MG TABLET PO SCH ×2 (11:15→21:00)
[2020-05-13] MEDS: METOCLOPRAMIDE 5 MG TABLET PO SCH ×2 (11:29→17:26)
--- NOTE | 2020-05-13 11:30 | NUR ---
DYSPHAGIA EVAL COMPLETED. -S/S OF ASPIRATION. RECOMMEND MECHANICAL SOFT/GROUND, THIN LIQUIDS; PILLS WHOLE WITH LIQUIDS WHEN OK WITH MD TO ADVANCE DIET FROM CLEAR LIQUIDS. RECOMMENDATIONS: 1. CONTINUE CLEAR LIQUIDS UNTIL Pt TOLERATES DIET, THEN OK TO UPGRADE TO MECHANICAL SOFT/GROUND. INFECTION CONTROL MANAGER COORDINATED WITH NURSE AMIN AT THIS TIME. Addendum: 05/13/20 at 1616 by MELVIN ALAS [facility] Amended: Links added.
[2020-05-13] MEDS ORDERED: LORAZEPAM 1 MG TABLET PO SCH (12:00)
--- NOTE | 2020-05-13 12:21 | NUR ---
DC PLAN SPOKE TO BONIFACIO OCHOA [facility] AT [facility] NURSE [phone]. SAID PATIENT OKAY TO RETURN TO [facility]. THEY WOULD JUST PLACE HIM IN THE ISOLATION SECTION. AFTER DISCUSSING WITH NURSE AT FACILITY. SAID THEY ARE CONSTANTLY TRYING TO WORK ON PATIENT HR. IN THE 130'S IS NORMAL. NOT SUPRISED PATIENT IS AGITATED DOES NOT DO WELL WITH CHANGE. SPOKE TO TOMEKA BROCK DIRECTOR REGARDING CASE. SAID OKAY TO CALL [facility] TO MAKE SURE THEY ARE ABLE TO TAKE PATIENT. SINCE PATIENT COMES FROM THAT FACILITY. DID NOT NEED PERMISSION FROM SISTER TO TALK TO FACILITY. WILL ASK DR. MELISSA IF WE SHOULD ASK CONSULTANTS IF PATIENT CLEARED TO DC BACK TO FACILITY. FROM DR. BELÉN PURVIS SAID THAT THEY WOULD NOT DO EGD AT THIS TIME DUE TO COVID POSITIVE NOT EMERGENT. CAN WAIT FOR PATIENT TO BE QUARANTINED AND DO EGD OUT PATIENT. Addendum: 05/13/20 at 1227 by SHANE GUALLPA RN CM Amended: Links added.
[2020-05-13] MEDS ORDERED: CEPHA2505L PO (14:53)
[2020-05-13] MEDS ORDERED: AZIT500T4 PO (14:53)
--- NOTE | 2020-05-13 20:30 | NUR ---
discharge discharge to [facility] ([place], [place]) via wheelchair accompanied by two representatives, no sob , discontinued to ivs right hand, apply 2x2 and tape
[2020-05-13] MEDS ORDERED: QUETIAPINE FUMARATE 100 MG TAB PO SCH (21:00)
[2020-05-13] MEDS ORDERED: GUANFACINE HCL 1 MG TAB PO SCH (21:00)
[2020-05-13] MEDS ORDERED: METOPROLOL TARTRATE 50 MG TAB PO SCH (21:00)
[2020-05-14] MEDS ORDERED: POLYETHYLENE GLYCOL 3350 17 GM POWD.PACK PO SCH (09:00)
== END 2020-05-13 20:30 | DRG 208 ==
LOC: EDH 05:14 → EDHIP 06:58 → INTOOBSV 06:58 → OBSVTOIN 06:58 → 2BH 05-12 19:08
PROVIDERS: ADMIT Internal Medicine; ATTEND Internal Medicine
PROC: 5A1945Z Respiratory Ventilation, 24-96 Consecutive Hours (ICD-10-PCS; principal; 2020-05-10)
PROC: 0BH17EZ Insertion of Endotracheal Airway into Trachea, Via Natural or Artificial Opening (ICD-10-PCS; 2020-05-10)
DX: U07.1 COVID-19 (principal); J96.90 Respiratory failure, unspecified, unspecified whether with hypoxia or hypercapnia; R53.2 Functional quadriplegia; J18.9 Pneumonia, unspecified organism; K92.0 Hematemesis; I10 Essential (primary) hypertension
CPT/HCPCS: 31500; 36415; 36600; 70450; 71045; 71260; 74177; 80048; 80053; 81001; 82140; 82270; 82271; 82728; 82803; 83605; 83615; 83690; 84145; 84484; 85014; 85018; 85025; 85378; 85610; 85730; 86140; 86850; 86900; 86901; 87040; 87088; 87426; 92610; 93005; 94002; 94003; C9113; G0378; J0696; J1200; J1630; J2060; J2185; J2250; J2405; J2704; J3010; J3490; J7042; Q9967; U0003